=== PATIENT | female | born 1975 | race Caucasian/White ===

== ENCOUNTER → 2017-04-20 | Outpatient (CLI) | payer BC ==
[~2017-04-20] MED LIST: ACE3 PO; ACET-3017 PO; ASC500 PO; ETON1VAG7 VG; FERR325C2 PO; HYDR-385 PO; IBU600 PO; IBU800 PO; IBUP800T37 PO; KET10 PO; LACT1CAP6 PO; LORA-1456 PO; OXYC-865 PO; PREN1TAB15 PO
--- NOTE | 2017-04-21 09:06 | RADIOLOGY IMAGING REPORT ---
FACILITY: [facility] PATIENT NAME: SYBIL JOSHI : [id number] MR: [id number] V: [id number] EXAM DATE: ORDERING PHYSICIAN: AIDAN LIND TECHNOLOGIST: Mei Joshi PROCEDURE:BILATERAL DIGITAL SCREENING MAMMOGRAM WITH CAD ASSISTED INTERPRETATION & 3D TOMOSYNTHESIS COMPARISON:None. INDICATIONS:screening FINDINGS: Moderately heterogeneous fibroglandular tissue is seen throughout the breasts. There is no evidence of malignant appearing mass, malignant appearing calcifications or other secondary sign of malignancy in either breast. DIAGNOSTIC CATEGORY 1--NEGATIVE. RECOMMENDATIONS: ROUTINE MAMMOGRAM AND CLINICAL EVALUATION. IMPRESSION: BIRADS 1: Negative No significant abnormality is seen Dictated by: Nathalie Coates M.D. on 04/20/2017 at 16:46 Transcribed by: STEPHEN on 04/21/2017 at 8:50 Approved by: Nathalie Coates M.D. on 04/21/2017 at 9:05 [facility]
== END ==
LOC: MAMO 00:58
PROVIDERS: ATTEND Nurse Practitioner Family
DX: Z12.31 Encounter for screening mammogram for malignant neoplasm of breast (principal)
CPT/HCPCS: 77063; 77067

== ENCOUNTER 2017-04-21 10:32 | Outpatient (RCR) | payer BC ==
[~2017-04-21] VITALS: Ht 167.6 cm; Wt 134.7 kg
--- NOTE | 2017-04-21 16:16 | Medical Nutrition Therapy ---
Nutrition Anthropometrics Height (Inches): 66 (stated) Weight (Pounds): 297 (standing scale without shoes) Yvan Nutrition Score: Yvan Nutrition Risk Score: Dietary Referral Nutrition Risk Factors: Nutrition Risk Comment: Nutrition/Food History Breakfast: skips 3-4X/wk, or cereal, almond milk, breakfst sand Lunch: sandwich, fast foods Dinner: meat, starch, veg, fruit Snacks: cheese, pretzels, candy, cookies Nutritional Education Nutrition Education Topic: Weight Loss Diet Learning Readiness: Interested Teaching Methods: Discussion, Handout, Demonstration Response to Teaching: Verbalize understanding, Reinforcement needed Teaching Recipient: Patient Nutrition Counseling: Pt has good understanding of healthy and unhealthy food choices. She states being a "picky" eater and likes a lot of foods that are "bad" for her such as white breads and sweets. She eats when she is bored and likes to graze throughout the day. She often skips breakfast or eats it on the go, lunch varies but is usually a sandwich, something that is quick and easy. Dinner is typically some type of protein, a starchy side, canned vegetables, and fruit. She is drinking either 2 sodas/day or a soda and a high pari beverage from [employer]. In the past she has signed up for Weight [employer] but only went to the initial meetings once. About 9 years ago she tried Atkins and lost about 20#. 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 Her job is very sedentary and does not seek activity in spare time. We discussed how she could add activity. She wants accountability and feels she is somewhat motivated to start making changes. She does not have much support from her but she feels her mother would be a good source of support. We discussed planning healthy snacks and having them on hand. We discussed a meal plan or kcal counting diet vs plate method, no diet approach. Since pt has tried weight watchers and wasn't successful and wasn't interested in meal plan at this time, will try mindful eating approach. We set several small goals and will follow up in 3 weeks. May 12 @ 12:00 Nutrition Monitoring & Eval Nutritional Goals Comment: 1. 500-700mg of Na/meal 2. Portion Control 3. Decrease processed foods and sugar sweetened beverages 4. Cut back or eliminate on drinks with calories: Alternate soda with carbonated water, try diet soda, use sugar substitutes in coffee 5 Pt will use time kids are in an activity to be active ( walk steps or around building) RD Patient Assessment Time: [address] Assessment Type: RD Education Nutritional Comment: Provided 60 minute MNT for dx obesity with BMI> 40 Copies To Copies to: AIDAN LIND BETH Apr 21, 2017 12:23
--- NOTE | 2017-05-26 15:25 | Medical Nutrition Therapy ---
Nutrition Monitoring & Eval Nutritional Comment: Pt did not show up for f/u appointment. When f/u call was made, pt admitted has not been folloiwng plan and is not sure she is ready. Pt was concerned with finances and was not interested at this time for another appt. Copies To Copies to: AIDAN LIND BETH May 26, 2017 15:25
== END 2017-05-26 ==
LOC: DIET 10:32
PROVIDERS: ATTEND Nurse Practitioner Family
DX: Z71.3 Dietary counseling and surveillance (principal); E66.9 Obesity, unspecified; I10 Essential (primary) hypertension; Z68.42 Body mass index [BMI] 45.0-49.9, adult
CPT/HCPCS: 97802

== ENCOUNTER → 2018-04-10 | Outpatient (CLI) | payer OTHER ==
[2018-04-10 11:17] LABS: LDL CHOLESTEROL 57 mg/dl
== END ==
LOC: LAB 10:35
PROVIDERS: ATTEND Nurse Practitioner Family
DX: Z00.00 Encounter for general adult medical examination without abnormal findings (principal)
CPT/HCPCS: 36415; 82040; 82247; 82310; 82374; 82435; 82465; 82565; 82947; 83718; 84075; 84132; 84155; 84295; 84443; 84450; 84460; 84478; 84520

== ENCOUNTER → 2018-04-16 | Outpatient (CLI) | payer OTHER ==
--- NOTE | 2018-04-16 17:48 | RADIOLOGY IMAGING REPORT ---
[place] [facility] [place]IENT NAME: Torri Mansfield : 1975 MR: [id number] V: [id number] EXAM DATE: ORDERING PHYSICIAN: AIDAN LIND TECHNOLOGIST: Location: [facility] [place] Patient: Torri Mansfield : 1975 Visit/Account:[id number] Date of Sevice: 04/16/2018 CHEST PA AND LAT History: Left-sided chest pain FINDINGS: Comparison studies: March 24, 2016 Tubes and Lines: None. Lungs and pleura: Well aerated. No evidence of focal consolidation or pleural effusions. Mediastinum: normal. Cardiac silhouette: normal . Osseous structures: Unremarkable for age . IMPRESSION: Normal chest Report Dictated By: Kevan Maynard MD at 04/16/2018 5:40 PM Report E-Signed By: Kevan Maynard MD at 04/16/2018 5:43 PM WSN:MERRILL
== END ==
LOC: RAD 16:48
PROVIDERS: ATTEND Nurse Practitioner Family
DX: R07.89 Other chest pain (principal)
CPT/HCPCS: 71046

== ENCOUNTER → 2018-07-17 | Outpatient (CLI) | payer OTHER ==
[~2018-07-17] MED LIST changes: -PREN1TAB15 PO; +PRENATAL ONE T1 EAC1 PO
--- NOTE | 2018-07-18 09:42 | RADIOLOGY IMAGING REPORT ---
FACILITY: [facility] [place] PATIENT NAME: SYBIL JOSHI : [id number] MR: [id number] V: [id number] EXAM DATE: ORDERING PHYSICIAN: AIDAN LIND TECHNOLOGIST: Augusta Sevilla PROCEDURE: BILATERAL DIGITAL SCREENING MAMMOGRAM WITH CAD ASSISTED INTERPRETATION & 3D TOMOSYNTHESIS REASON FOR STUDY: Screening FAMILY HISTORY OF BREAST CANCER: None BREAST PROCEDURES/TREATMENTS: None COMPARISON: 04/20/17 VIEWS OBTAINED: Bilateral 2D & 3D full field CC & MLO BREAST DENSITY: The breasts are heterogeneously dense which can obscure small masses. MAMMOGRAM FINDINGS: The parenchymal pattern has remained stable allowing for difference in mammographic technique & patient positioning. IMPRESSION: BIRADS 1: Negative. DIAGNOSTIC CATEGORY 1--NEGATIVE. RECOMMENDATIONS: ROUTINE MAMMOGRAM AND CLINICAL EVALUATION. Dictated by: Nathalie Coates M.D. on 07/17/2018 at 17:02 Transcribed by: ARTEMIO on 07/18/2018 at 7:00 Approved by: Nathalie Coates M.D. on 07/18/2018 at 9:41 [facility]
== END ==
LOC: MAMO 00:30
PROVIDERS: ATTEND Nurse Practitioner Family
DX: Z12.31 Encounter for screening mammogram for malignant neoplasm of breast (principal)
CPT/HCPCS: 77063; 77067